=== PATIENT | male | born 1960 | race Hispanic/Latino ===

== ENCOUNTER 2017-05-14 02:10 | Emergency (ER) | payer OTHER ==
[2017-05-14] MEDS ORDERED: CYCLOBENZAPRINE HCL 10 MG TABLET ONE (03:46)
[2017-05-14] MEDS ORDERED: HYDROCODONE/ACETAMINOPHEN 5/325 MG TAB ONE (03:46)
== END 2017-05-14 04:26 | disposition home or self-care (01) ==
LOC: EDH 02:10
DX: G89.29 Other chronic pain (principal); M54.5 Low back pain

== ENCOUNTER → 2017-09-06 | Outpatient (CLI) | payer OTHER | END | disposition home or self-care (01) | LOC: OIH 15:07 | PROVIDERS: ATTEND Internal Medicine | DX: M25.561 Pain in right knee (principal); M54.5 Low back pain | CPT/HCPCS: 72100; 73560 ==

== ENCOUNTER → 2017-09-14 | Outpatient (CLI) | payer OTHER | END | disposition home or self-care (01) | LOC: RAH 08:03 | PROVIDERS: ATTEND Nurse Practitioner Family | DX: R06.00 Dyspnea, unspecified (principal) | CPT/HCPCS: 71046 ==

== ENCOUNTER → 2017-09-15 | Outpatient (CLI) | payer OTHER | END | disposition home or self-care (01) | LOC: RAH 06:51 | PROVIDERS: ATTEND Nurse Practitioner Family | DX: M51.27 Other intervertebral disc displacement, lumbosacral region (principal); M47.897 Other spondylosis, lumbosacral region | CPT/HCPCS: 72148 ==

== ENCOUNTER → 2017-09-20 | Outpatient (CLI) | payer OTHER | END | disposition home or self-care (01) | LOC: RAH 07:48 | PROVIDERS: ATTEND Nurse Practitioner Family | DX: I69.811 Memory deficit following other cerebrovascular disease (principal); E78.2 Mixed hyperlipidemia | CPT/HCPCS: 70551 ==